=== PATIENT | female | born 1975 | race Native Hawaiian/Other Pacific Islander ===

== ENCOUNTER 2021-03-14 19:12 | Inpatient (IN) | payer MEDICARE ==
[2021-03-14] MEDS ORDERED: SODIUM CHLORIDE 0.9% 1000 ML 1,000 ML IV ONE (19:22)
[2021-03-14] MEDS ORDERED: levETIRAcetam 1000 MG/NS 0.75% 1,000 MG/100 ML BAG IV ONE (19:22)
[2021-03-14] MEDS ORDERED: LACOSAMIDE 100 MG in SODIUM CHLORIDE 0.9% 100 ML IV ONE (19:23)
--- NOTE | 2021-03-14 19:36 | Emergency Department Report ---
HPI - General Chief Complaint: Seizure Time Seen by Provider: 03/14/21 19:17 - HPI HPI: 45-year-old female presents to the emergency department via EMS from home after she has had multiple recurrent seizures over the past week. She last had a seizure this morning. She presents to the emergency department awake, alert, oriented, AAO x3. She complains of a headache, and some midsternal chest pain. Patient says the headache has been going on for the past 2 weeks since the patient had a fall and hit the back of her head. The patient does have a sei zure disorder for which she is on Keppra and Vimpat, but admits that she is not always compliant with her medication. She also has a history of neuropathy. Her primary care physician is Dr. Brendon Renner and her neurologist is Dr. May. She denies any vision change, slurred speech, numbness or paresthesias, focal or lateralizing weakness. She is a former smoker. She denies any illicit drug use or any alcohol use/dependence. ED Past Medical Hx - Past Medical History Hx Seizures: Yes Additional medical history: PNEUMONIA - Surgical History Past Surgical History?: Yes Additional Surgical History: TRACH ED Review of Systems ROS: Stated complaint: SEIZURE Other details as noted in HPI Comment: All other systems reviewed and negative Constitutional: denies: chills, fever Eyes: denies: eye pain, vision change ENT: denies: ear pain, throat pain Respiratory: denies: cough, shortness of breath Cardiovascular: chest pain. denies: palpitations Gastrointestinal: denies: abdominal pain, vomiting Genitourinary: denies: dysuria, discharge Musculoskeletal: denies: back pain, arthralgia Skin: denies: rash, lesions Neurological: headache, other (Seizures). denies: numbness, paresthesias Physical Exam - Physical Exam Vital Signs: Vital Signs 03/14/21 19:20 Blood Pressure 105/68 O2 Sat by Pulse 100 Oximetry Physical Exam: GENERAL: The patient is well-developed well-nourished. HENT: Normocephalic. Atraumatic. Patient has moist mucous membranes. EYES: Extraocular motions are intact. NECK: Supple. Trachea is midline. CHEST/LUNGS: Clear to auscultation. There is no respiratory distress noted. HEART/CARDIOVASCULAR: Regular. There is no tachycardia. There is no murmur. ABDOMEN: Abdomen is soft, nontender. Patient has normal bowel sounds. There is no abdominal distention. SKIN: Skin is warm and dry. NEURO: The patient is awake, alert, and cooperative. The patient has no focal neurologic deficits. Normal speech. Cranial nerves II through XII grossly intact. No facial asymmetry. MUSCULOSKELETAL: There is no tenderness or deformity. There is no limitation range of motion. ED Course Vital Signs 03/14/21 19:20 Blood Pressure 105/68 O2 Sat by Pulse 100 Oximetry ED Medical Decision Making - Lab Data Result diagrams: 03/14/21 19:27 03/14/21 19:27 Lab Results 03/14/21 03/14/21 03/14/21 Range/Units 19:27 19: 22:11 WBC 3.1 L (4.5-11.0) K/mm3 RBC 4.57 (3.65-5.03) M/mm3 Hgb 13.5 (10.1-14.3) gm/dl Hct 43.8 H (30.3-42.9) % MCV 96 (79-97) fl MCH 30 (28-32) pg MCHC 31 (30-34) % RDW 15.8 H (13.2-15.2) % Plt Count 249 (140-440) K/mm3 Lymph % (Auto) 38.6 H (13.4-35.0) % [place] % (Auto) 10.4 H (0.0-7.3) % Eos % (Auto) 4.0 (0.0-4.3) % Baso % (Auto) 0.4 (0.0-1.8) % Lymph # (Auto) 1.2 (1.2-5.4) K/mm3 [place] # (Auto) 0.3 (0.0-0.8) K/mm3 Eos # (Auto) 0.1 (0.0-0.4) K/mm3 Baso # (Auto) 0.0 (0.0-0.1) K/mm3 Seg Neutrophils % 46.6 (40.0-70.0) % Seg Neutrophils # 1.4 L (1.8-7.7) K/mm3 Sodium 139 (137-145) mmol/L Potassium 3.7 (3.6-5.0) mmol/L Chloride 109.5 H (98-107) mmol/L Carbon Dioxide 17 L (22-30) mmol/L Anion Gap 16 mmol/L BUN 35 H (7-17) mg/dL Creatinine 1.3 H (0.6-1.2) mg/dL Estimated GFR 44 ml/min BUN/Creatinine Ratio 27 % Glucose 52 L (65-100) mg/dL POC Glucose 113 H (70-105) mg/dL Calcium 9.0 (8.4-10.2) mg/dL Total Bilirubin 0.20 (0.1-1.2) mg/dL AST 12 (5-40) units/L ALT 8 (7-56) units/L Alkaline Phosphatase 97 (35-129) units/L Troponin T < 0.010 (0.00-0.029) ng/mL Total Protein 7.2 (6.3-8.2) g/dL Albumin 4.2 (3.9-5) g/dL Albumin/Globulin Ratio 1.4 % 11/16/ Range/Units 23:31 WBC (4.5-11.0) K/mm3 RBC (3.65-5.03) M/mm3 Hgb (10.1-14.3) gm/dl Hct (30.3-42.9) % MCV (79-97) fl MCH (28-32) pg MCHC (30-34) % RDW (13.2-15.2) % Plt Count (140-440) K/mm3 Lymph % (Auto) (13.4-35.0) % [place] % (Auto) (0.0-7.3) % Eos % (Auto) (0.0-4.3) % Baso % (Auto) (0.0-1.8) % Lymph # (Auto) (1.2-5.4) K/mm3 [place] # (Auto) (0.0-0.8) K/mm3 Eos # (Auto) (0.0-0.4) K/mm3 Baso # (Auto) (0.0-0.1) K/mm3 Seg Neutrophils % (40.0-70.0) % Seg Neutrophils # (1.8-7.7) K/mm3 Sodium (137-145) mmol/L Potassium (3.6-5.0) mmol/L Chloride (98-107) mmol/L Carbon Dioxide (22-30) mmol/L Anion Gap mmol/L BUN (7-17) mg/dL Creatinine (0.6-1.2) mg/dL Estimated GFR ml/min BUN/Creatinine Ratio % Glucose (65-100) mg/dL POC Glucose 83 (70-105) mg/dL Calcium (8.4-10.2) mg/dL Total Bilirubin (0.1-1.2) mg/dL AST (5-40) units/L ALT (7-56) units/L Alkaline Phosphatase (35-129) units/L Troponin T (0.00-0.029) ng/mL Total Protein (6.3-8.2) g/dL Albumin (3.9-5) g/dL Albumin/Globulin Ratio % - Radiology Data Radiology results: report reviewed CT head/brain wo con INDICATION / CLINICAL INFORMATION: 45 years Female; Recurrent seizures, recent head trauma, headache. TECHNIQUE: Routine CT head without contrast. All CT scans at this location are performed using CT dose reduction for ALARA by means of automated exposure control. COMPARISON: None. FINDINGS: BRAIN / INTRACRANIAL CONTENTS: No acute hemorrhage, mass effect, midline shift, hydrocephalus, or acute, large territorial infarct. Minimal, diffuse cerebral atrophy suggested. There are mild areas of decreased attenuation in the white matter of the cerebral hemispheres. These are nonspecific findings and may be related to microangiopathy (hypertension, diabetes, atherosclerosis), given the patient's age. CRANIOCERVICAL JUNCTION: No significant abnormality. ORBITS: No significant abnormality of visualized orbits. SINUSES / MASTOIDS: Visualized paranasal sinuses and mastoid air cells are essentially clear. ADDITIONAL FINDINGS: None. IMPRESSION: 1. No focal mass, hemorrhage, hydrocephalus, or acute, large territorial infarct. - Medical Decision Making This patient presents to the emergency department with complaint of multiple seizures over the past week, and then a seizure just prior to presentation. Patient also had some seizure-like activity while in the emergency department. She admits to some medication noncompliance with her antiepileptic medication. She was given a loading dose of Keppra and given a dose of Vimpat. CT of the head does not show any hemorrhage, large vessel occlusion, or any other acute process. Patient's labs are remarkable for some acute kidney injury with a GFR of about 45 and hyperglycemia with a blood sugar of about 50. Around the time of this laboratory result, the patient was seen slightly altered. When she was given an amp of D50 she immediately perked back up.. We continue to monitor her blood sugar. It went up to about 115 but then started decreasing into the low 80s. The patient's recurrent seizures may be secondary to a mixture of her medication noncompliance and issues with hypoglycemia that appeared to occur at night. Given the patient's multiple recent recurrent seizures, the HUMA, and the issues with a labile blood sugar, she will be admitted to the hospital for further evaluation and treatment was accepted for admission by the hospitalist, Dr. Gerardo. Critical Care Time: No Critical care attestation.: If time is entered above; I have spent that time in minutes in the direct care of this critically ill patient, excluding procedure time. ED Disposition Clinical Impression: Recurrent seizures, Hypoglycemia, HUMA (acute kidney injury) Disposition: ADMITTED INPATIENT Is pt being admited?: Yes Condition: Fair Referrals: BRENDON RENNER MD [Primary Care Provider] - 3-5 Days Time of Disposition: 00:07
[2021-03-14 19:44] LABS: Basophils % (Auto) 0.4 % (0.0-1.8); Eosinophils # (Auto) 0.1 K/mm3 (0.0-0.4); Lymphocytes # (Auto) 1.2 K/mm3 (1.2-5.4); Lymphocytes % (Auto) 38.6 % (13.4-35.0); Mean Corpuscular HGB Conc 31 % (30-34); Mean Corpuscular Volume 96 fl (79-97); Monocytes # (Auto) 0.3 K/mm3 (0.0-0.8); Monocytes % (Auto) 10.4 % (0.0-7.3); Platelet Count 249 K/mm3 (140-440); Red Blood Count 4.57 M/mm3 (3.65-5.03); Red Cell Distribution Width 15.8 % (13.2-15.2)
[2021-03-14 19:50] LABS: Hematocrit 43.8 % (30.3-42.9); Hemoglobin 13.5 gm/dl (10.1-14.3)
[2021-03-14 20:09] LABS: Alanine Aminotransferase 8 units/L (7-56); Albumin 4.2 g/dL (3.9-5); BUN/Creatinine Ratio 27; Blood Urea Nitrogen 35 mg/dL (7-17); Hemolysis Index 12
[2021-03-14] MEDS ORDERED: DEXTROSE 50% IN WATER (25GM) 50 ML SYRINGE IV ONE (20:11)
--- NOTE | 2021-03-14 20:30 | Cat Scan Report ---
CT head/brain wo con INDICATION / CLINICAL INFORMATION: 45 years Female; Recurrent seizures, recent head trauma, headache. TECHNIQUE: Routine CT head without contrast. All CT scans at this location are performed using CT dos e reduction for ALARA by means of automated exposure control. COMPARISON: None. FINDINGS: BRAIN / INTRACRANIAL CONTENTS: No acute hemorrhage, mass effect, midline shift, hydrocephalus, or acu te, large territorial infarct. Minimal, diffuse cerebral atrophy suggested. There are mild areas of decreased attenuation in the white matter of the cerebral hemispheres. These are nonspecific findings and may be related to microangiopathy (hypertension, diabetes, atheroscleros is), given the patient's age. CRANIOCERVICAL JUNCTION: No significant abnormality. ORBITS: No significant abnormality of visualized orbits. SINUSES / MASTOIDS: Visualized paranasal sinuses and mastoid air cells are essentially clear. ADDITIONAL FINDINGS: None. IMPRESSION: 1. No focal mass, hemorrhage, hydrocephalus, or acute, large territorial infarct. Signer Name: Neto Evans MD, III Signed: 03/14/2021 8:26 PM Workstation Name: [id number]
[2021-03-14] MEDS ORDERED: traMADol 50 MG TAB PO ONE (22:06)
[2021-03-15] MEDS ORDERED: ALBUTEROL 2.5 MG/3 ML NEBU IH PRN (00:47)
[2021-03-15] MEDS ORDERED: ONDANSETRON 4 MG/2 ML INJ IV PRN (00:47)
[2021-03-15] MEDS ORDERED: HYDROmorphone 1 MG/1 ML INJ IV PRN (00:47)
--- NOTE | 2021-03-15 00:55 | History and Physical Report ---
History of Present Illness Date of examination: 03/15/21 Date of admission: 03/15/21 Chief complaint: Seizure History of present illness: 45-year-old female with past medical history of seizure and neuropathy was brought to the emergency room because patient has had multiple recurrent seizures over the past week. She last had a seizure this morning. She presents to the emergency department awake, alert, oriented, AAO x3. She complains of a headache, and some midsternal chest pain. Patient says the headache has been going on for the past 2 weeks since the patient had a fall and hit the back of her head. The patient does have a seizure disorder for which she is on Keppra and Vimpat, but admits that she is not always compliant with her medication. Her primary care physician is Dr. Brendon Wolfe and her neurologist is Dr. May. She denies any vision change, slurred speech, numbness or paresthesias, focal or lateralizing weakness. She is a former smoker. She denies any illicit drug use or any alcohol use/dependence. In the emergency room initial CT scan of the head shows no acute intracranial abnormality. But patient blood glucose is 52 oh and BUN is 35 creatinine 1.3.'s were going to admit the patient will consult neurology for evaluation and we order EEG Med rec is not available Past History Past Medical History: seizures, other (Neuropath) Medications and Allergies Allergies Allergy/AdvReac Type Severity Reaction Status Date / Time No Known Allergies Allergy Unverified 03/14/21 20:07 Active Meds: Active Medications Acetaminophen (Acetaminophen 325 Mg Tab) 650 mg PO Q4H PRN PRN Reason: Pain MILD(1-3)/Fever >100.5/BROWN Albuterol (Albuterol 2.5 Mg/3 Ml Nebu) 2.5 mg IH Q4HRT PRN PRN Reason: Shortness Of Breath Albuterol/Ipratropium (Ipratropium/Albuterol Sulfate 3 Ml Ampul.Neb) 1 ampul IH Q6HRT JUAN Famotidine (Famotidine 20 Mg/2 Ml Inj) 20 mg IV BID JUAN Heparin Sodium (Porcine) (Heparin 5,000 Unit/1 Ml Vial) 5,000 unit SUB-Q Q12HR JUAN Hydromorphone HCl (Hydromorphone 1 Mg/1 Ml Inj) 0.5 mg IV Q3H PRN PRN Reason: Pain , Severe (7-10) Sodium Chloride (Nacl 0.9% 1000 Ml) 1,000 mls @ 125 mls/hr IV ONCE ONE Stop: 03/15/21 03:21 Last Admin: 03/14/21 21:01 Dose: 125 mls/hr Documented by: Dextrose/Sodium Chloride (D5/0.45ns) 1,000 mls @ 125 mls/hr IV DIRECT JUAN Levetiracetam 500 mg/ Dextrose 105 mls @ 400 mls/hr IV Q12HR JUAN Morphine Sulfate (Morphine 2 Mg/1 Ml Inj) 2 mg IV Q4H PRN PRN Reason: Pain, Moderate (4-6) Ondansetron HCl (Ondansetron 4 Mg/2 Ml Inj) 4 mg IV Q8H PRN PRN Reason: Nausea And Vomiting Sodium Chloride (Sodium Chloride 0.9% 10 Ml Flush Syringe) 10 ml IV BID JUAN Sodium Chloride (Sodium Chloride 0.9% 10 Ml Flush Syringe) 10 ml IV PRN PRN PRN Reason: LINE FLUSH Review of Systems All systems: negative Constitutional: other (Headache) Cardiovascular: chest pain Neurological: seizures Exam - Constitutional Vitals: Temp Pulse Resp BP Pulse Ox 73 13 130/80 98 03/14/21 23:01 03/14/21 23:01 03/14/21 23:01 03/14/21 23:01 General appearance: Present: no acute distress, well-nourished - EENT Eyes: Present: PERRL ENT: hearing intact, clear oral mucosa - Neck Neck: Present: supple, normal ROM - Respiratory Respiratory effort: normal Respiratory: bilateral: diminished - Cardiovascular Heart Sounds: Present: S1 & S2. Absent: rub, click - Extremities Extremities: pulses symmetrical, No edema Peripheral Pulses: within normal limits - Abdominal General gastrointestinal: Present: soft, non-tender, non-distended, normal bowel sounds Female genitourinary: Present: normal - Integumentary Integumentary: Present: clear, warm, dry - Musculoskeletal Musculoskeletal: gait normal, strength equal bilaterally - Psychiatric Psychiatric: appropriate mood/affect, intact judgment & insight - Neurologic Neurologic: CNII-XII intact, moves all extremities HEART Score - HEART Score Troponin: Troponin T < 0.010 ng/mL (0.00-0.029) 11/16/21 19: Results - Labs CBC & Chem 7: 03/14/21 19:27 03/14/21: Labs: Laboratory Last Values WBC 3.1 K/mm3 (4.5-11.0) L 03/14/21: RBC 4.57 M/mm3 (3.65-5.03) 03/14/21: Hgb 13.5 gm/dl (10.1-14.3) 03/14/21: Hct 43.8 % (30.3-42.9) H 03/14/21: MCV 96 fl (79-97) 03/14/21: MCH 30 pg (28-32) 03/14/21 MCHC 31 % (30-34) 03/14/21 RDW 15.8 % (13.2-15.2) H 03/14/21 Plt Count 249 K/mm3 (140-440) 03/14/21: Lymph % (Auto) 38.6 % (13.4-35.0) H 03/14/21: [place] % (Auto) 10.4 % (0.0-7.3) H 03/14/21: Eos % (Auto) 4.0 % (0.0-4.3) 03/14/21 Baso % (Auto) 0.4 % (0.0-1.8) 03/14/21 Lymph # (Auto) 1.2 K/mm3 (1.2-5.4) 03/14/21: [place] # (Auto) 0.3 K/mm3 (0.0-0.8) 03/14/21: Eos # (Auto) 0.1 K/mm3 (0.0-0.4) 03/14/21 Baso # (Auto) 0.0 K/mm3 (0.0-0.1) 03/14/21: Seg Neutrophils % 46.6 % (40.0-70.0) 03/14/21: Seg Neutrophils # 1.4 K/mm3 (1.8-7.7) L 11/16/21 19:27 Sodium 139 mmol/L (137-145) 03/14/21 19:27 Potassium 3.7 mmol/L (3.6-5.0) 03/14/21 19:27 Chloride 109.5 mmol/L (98-107) H 03/14/21 19:27 Carbon Dioxide 17 mmol/L (22-30) L 03/14/21 19:27 Anion Gap 16 mmol/L 03/14/21 19:27 BUN 35 mg/dL (7-17) H 03/14/21 19:27 Creatinine 1.3 mg/dL (0.6-1.2) H 03/14/21 19:27 Estimated GFR 44 ml/min 03/14/21 19:27 BUN/Creatinine Ratio 27 % 03/14/21 19:27 Glucose 52 mg/dL (65-100) L 03/14/21 19:27 POC Glucose 83 mg/dL (70-105) 03/14/21 23:31 Calcium 9.0 mg/dL (8.4-10.2) 03/14/21 19:27 Total Bilirubin 0.20 mg/dL (0.1-1.2) 03/14/21 19:27 AST 12 units/L (5-40) 03/14/21 19:27 ALT 8 units/L (7-56) 03/14/21 19:27 Alkaline Phosphatase 97 units/L (35-129) 03/14/21 19:27 Troponin T < 0.010 ng/mL (0.00-0.029) 03/14/21 19:27 Total Protein 7.2 g/dL (6.3-8.2) 03/14/21 19:27 Albumin 4.2 g/dL (3.9-5) 03/14/21 19:27 Albumin/Globulin Ratio 1.4 % 03/14/21 19:27 - Imaging and Cardiology CT Scan - head: report reviewed Assessment and Plan VTE prophylaxis?: Chemical Plan of care discussed with patient/family: Yes - Patient Problems (1) Recurrent seizures Current Visit: Yes Status: Acute Plan to address problem: Admit the patient to the MedSurg. Patient is on seizure precaution and. NPO. D5 half-normal saline at the rate of 100 cc/h. Keppra 500 mg IV daily. EEG. Will consult neurology for evaluation (2) HUMA (acute kidney injury) Current Visit: Yes Status: Acute Plan to address problem: NPO. D5 half-normal saline at the rate of 100 cc/h. Avoid nephrotoxic drug. Recheck BMP in the morning (3) Hypoglycemia Current Visit: Yes Status: Acute Plan to address problem: NPO. D5 half-normal saline at the rate of 100 cc/h. We'll monitor the glucose closely. Recheck BMP in the morning (4) Neuropathy Current Visit: Yes Status: Acute Plan to address problem: Stable. We'll continue the home medication. Neurology evaluation (5) DVT prophylaxis Current Visit: Yes Status: Acute Plan to address problem: Heparin 5000 units subcu every 12 hours for DVT prophylaxis. Pepcid 20 mg IV every 12 hours for GI prophylaxis. Patient is a full code
[2021-03-15] MEDS ORDERED: D5W/0.45% NACL 1,000 ML IV SCH (01:00)
[2021-03-15] MEDS: IPRATROPIUM/ALBUTEROL SULFATE 3 ML AMPUL.NEB IH SCH (03:30)
[2021-03-15] MEDS: MORPHINE 2 MG/1 ML INJ IV PRN ×2 (03:47→19:33)
[2021-03-15] MEDS ORDERED: SODIUM CHLORIDE 0.9% 500 ML 500 ML IV ONE (04:49)
[2021-03-15] MEDS ORDERED: SODIUM CHLORIDE 0.9% 1000 ML 1,000 ML IV ONE (05:33)
[2021-03-15] MEDS ORDERED: NALOXONE 0.4 MG/1 ML INJ IV ONE (05:50)
--- NOTE | 2021-03-15 08:26 | Consultation ---
History of Present Illness Consult date: 03/15/21 Reason for Consult: recurrent seizure and headache History of present illness: Seizure History of present illness: 45-year-old female with past medical history of seizure and neuropathy was brought to the emergency room because patient has had multiple recurrent seizures over the past week. She last had a seizure this morning. She presents to the emergency department awake, alert, oriented, AAO x3. She complains of a headache, and some midsternal chest pain. Patient says the headache has been going on for the past 2 weeks since the patient had a fall and hit the back of her head. The patient does have a s eizure disorder for which she is on Keppra and Vimpat, but admits that she is not always compliant with her medication. Her primary care physician is Dr. Brendon Wolfe and her neurologist is Dr. May. According to her she averaged in the last 2 weeks 5-7 seizures daily present with tonic clonic activity each last 2-3 minutes then she is sleepy she is on Keppra 750 mg bid and Vimpat just been added 2 weeks ago according to medication make his dizzy and sleepy She denies any vision change, slurred speech, numbness or paresthesias, focal or lateralizing weakness. She is a former smoker. She denies any illicit drug use or any alcohol use/dependence. In the emergency room initial CT scan of the head shows no acute intracranial abnormality. But patient blood glucose is 52 oh and BUN is 35 creatinine 1.3.'s were going to admit the patient will consult neurology for evaluation and we order EEG Med rec is not available Past History Past Medical History: seizures, other (Neuropath) Medications and Allergies Allergies Allergy/AdvReac Type Severity Reaction Status Date / Time No Known Allergies Allergy Unverified 03/14/21 20:07 Active Meds: Active Medications Acetaminophen (Acetaminophen 325 Mg Tab) 650 mg PO Q4H PRN PRN Reason: Pain MILD(1-3)/Fever >100.5/BROWN Albuterol (Albuterol 2.5 Mg/3 Ml Nebu) 2.5 mg IH Q4HRT PRN PRN Reason: Shortness Of Breath Albuterol/Ipratropium (Ipratropium/Albuterol Sulfate 3 Ml Ampul.Neb) 1 ampul IH Q6HRT JUAN Famotidine (Famotidine 20 Mg/2 Ml Inj) 20 mg IV BID JUAN Heparin Sodium (Porcine) (Heparin 5,000 Unit/1 Ml Vial) 5,000 unit SUB-Q Q12HR JUAN Hydromorphone HCl (Hydromorphone 1 Mg/1 Ml Inj) 0.5 mg IV Q3H PRN PRN Reason: Pain , Severe (7-10) Sodium Chloride (Nacl 0.9% 1000 Ml) 1,000 mls @ 125 mls/hr IV ONCE ONE Stop: 03/15/21 03:21 Last Admin: 03/14/21 21:01 Dose: 125 mls/hr Documented by: Dextrose/Sodium Chloride (D5/0.45ns) 1,000 mls @ 125 mls/hr IV DIRECT JUAN Levetiracetam 500 mg/ Dextrose 105 mls @ 400 mls/hr IV Q12HR JUAN Morphine Sulfate (Morphine 2 Mg/1 Ml Inj) 2 mg IV Q4H PRN PRN Reason: Pain, Moderate (4-6) Ondansetron HCl (Ondansetron 4 Mg/2 Ml Inj) 4 mg IV Q8H PRN PRN Reason: Nausea And Vomiting Sodium Chloride (Sodium Chloride 0.9% 10 Ml Flush Syringe) 10 ml IV BID JUAN Sodium Chloride (Sodium Chloride 0.9% 10 Ml Flush Syringe) 10 ml IV PRN PRN PRN Reason: LINE FLUSH Review of Systems All systems: negative Constitutional: other (Headache) Cardiovascular: chest pain Neurological: seizures Past History Past Medical History: seizures, other (Neuropath) Medications and Allergies Allergies Allergy/AdvReac Type Severity Reaction Status Date / Time No Known Allergies Allergy Unverified 03/14/21 20:07 Home Medications Medication Instructions Recorded Confirmed Last Taken Type Keppra 750 mg PO BID 03/15/21 03/15/21 Unknown History Lyrica 200 mg PO BID 03/15/21 03/15/21 Unknown History Midodrine 20 mg PO BID 03/15/21 03/15/21 Unknown History Oxybutynin 5 mg PO DAILY 03/15/21 03/15/21 Unknown History Temazepam 30 mg PO HS 03/15/21 03/15/21 Unknown History Vimpat 100 mg PO BID 03/15/21 03/15/21 Unknown History Active Meds: Active Medications Acetaminophen (Acetaminophen 325 Mg Tab) 650 mg PO Q4H PRN PRN Reason: Pain MILD(1-3)/Fever >100.5/BROWN Albuterol (Albuterol 2.5 Mg/3 Ml Nebu) 2.5 mg IH Q4HRT PRN PRN Reason: Shortness Of Breath Albuterol/Ipratropium (Ipratropium/Albuterol Sulfate 3 Ml Ampul.Neb) 1 ampul IH Q6HRT [facility] [place] Last Admin: 03/15/21 03:30 Dose: 1 ampul Documented by: Famotidine (Famotidine 20 Mg Tab) 20 mg PO BID [facility] [place] Heparin Sodium (Porcine) (Heparin 5,000 Unit/1 Ml Vial) 5,000 unit SUB-Q Q12HR JUAN Hydromorphone HCl (Hydromorphone 1 Mg/1 Ml Inj) 0.5 mg IV Q3H PRN PRN Reason: Pain , Severe (7-10) Dextrose/Sodium Chloride (D5/0.45ns) 1,000 mls @ 125 mls/hr IV DIRECT JUAN Levetiracetam 500 mg/ Dextrose 105 mls @ 400 mls/hr IV Q12HR JUAN Morphine Sulfate (Morphine 2 Mg/1 Ml Inj) 2 mg IV Q4H PRN PRN Reason: Pain, Moderate (4-6) Last Admin: 03/15/21 03:47 Dose: 2 mg Documented by: Ondansetron HCl (Ondansetron 4 Mg/2 Ml Inj) 4 mg IV Q8H PRN PRN Reason: Nausea And Vomiting Sodium Chloride (Sodium Chloride 0.9% 10 Ml Flush Syringe) 10 ml IV BID [facility] [place] Sodium Chloride (Sodium Chloride 0.9% 10 Ml Flush Syringe) 10 ml IV PRN PRN PRN Reason: LINE FLUSH Physical Examination - Vital Signs Vital Signs: Vital Signs BP Pulse Ox 105/68 100 03/14/21 19:20 03/14/21 19:20 - Constitutional General appearance: uncomfortable, other (slightly lathergic evaluated after MRI done and she got ativan) - EENT EENT: Present: PERRL, mucous membranes moist - Respiratory Respiratory: Present: chest non-tender, lungs clear, rhonchi - Cardiovascular Cardiovascular: Present: regular rate, normal S1, normal S2 Extremities: Present: no peripheral edema bilatateraly, no clubbing, cyanosis - Gastrointestinal Gastrointestinal: Present: normoactive bowel sounds - Integumentary Integumentary: Present: normal - Neurologic Cranial nerve examination: PERRL, EOMI, VFF, facial droop Speech examination: intact Sensorimotor examination: intact Detailed motor examination: grossly full strength in, other (diffuse tenderness related to fall , no focal exam , ) Results - Laboratory Findings CBC and BMP: 03/14/21 19:27 03/14/21 19:27 Abnormal Lab Findings: Abnormal Labs 03/14/21 03/14/21 03/14/21 19:27 19:27 22:11 WBC 3.1 L Hct 43.8 H RDW 15.8 H Lymph % (Auto) 38.6 H [place] % (Auto) 10.4 H Seg Neutrophils # 1.4 L Chloride 109.5 H Carbon Dioxide 17 L BUN 35 H Creatinine 1.3 H Glucose 52 L POC Glucose 113 H Assessment and Plan Assessment and Plan 45-year-old female with past medical history of seizure and neuropathy was brought to the emergency room because patient has had multiple recurrent seizures over the past week. # Recurrent seizures few a day with long standing hx of seizure -compling with her medication at time but had side effect of getting dizzy and sleepy from medication specially Vimpay {was added 2 weeks ago} -change Keppra to 1500 mg mg bid IV -Vimpat 50 mg bid IV -Seizure precaution -MRI with Gd to review -EEG -ativan 2 mg Prn for seizure -Thiamin 200 mg IV daily for 3 days # HUMA (acute kidney injury) - D5 half-normal saline at the rate of 100 cc/h. - Avoid nephrotoxic drug. Recheck BMP in the morning #Hypoglycemia - D5 half-normal saline at the rate of 100 cc/h. We'll monitor the glucose closely. Recheck BMP in the morning # Neuropathy - check A1C,TSH,B12 - We'll continue the home medication. # DVT prophylaxis -Heparin 5000 units subcu every 12 hours for DVT prophylaxis. - Pepcid 20 mg IV every 12 hours for GI prophylaxis. - Patient is a full code
[2021-03-15] MEDS ORDERED: MIDODRINE 5 MG TAB PO ONE (09:45)
[2021-03-15] MEDS ORDERED: levETIRAcetam 500 MG in DEXTROSE 5% IN WATER 100 ML IV SCH (10:00)
[2021-03-15] MEDS ORDERED: FAMOTIDINE 20 MG/2 ML INJ IV SCH (10:00)
[2021-03-15] MEDS: FAMOTIDINE 20 MG TAB PO SCH ×2 (11:07→21:24)
[2021-03-15] MEDS: ACETAMINOPHEN 325 MG TAB PO PRN (11:47)
[2021-03-15] MEDS ORDERED: LORazepam 2 MG/ML VIAL IV PRN (11:49)
--- NOTE | 2021-03-15 11:53 | Magnetic Resonance Report ---
MR brain wo/w con INDICATION / CLINICAL INFORMATION: 45 years Female; Seizure disorder. TECHNIQUE: Multiplanar, multisequence MR images of the brain were obtained. COMPARISON: None available. FINDINGS: BRAIN / INTRACRANIAL CONTENTS: The motion degrades image quality. However, there is mild periventricu lar white matter disease which is nonspecific though may reflect microvascular angiopathy. However, t here is also linear increased FLAIR signal along the insular cortex bilaterally and a symmetric fashi on and correlation would be needed regarding insular epilepsy in this patient with history of "seizur e disorder". There also appear to be relative atrophy for age including the temporal lobes and hippoc ampi. Furthermore, there appears be subtle increased FLAIR signal within the hippocampi, slightly gre ater on the left which may be seen with mesial temporal sclerosis. However, the constellation of the insular cortical and hippocampal findings may be seen with limbic encephalitis and correlation would again be needed. The motion particularly degrades the postcontrast sequences. However, there appears to be subtle irregular enhancement along the posterior left temporal subcortical region measuring dave roximately 1.5 cm in greatest AP dimension. The diffusion imaging reveals no evidence of acute infarction. The ventricular system is correspondin gly appropriate in size and configuration. No extra-axial fluid collections or significant mass effec t is identified. , CRANIOCERVICAL JUNCTION: No significant abnormality. VASCULAR FLOW-VOIDS: No significant abnormality. ORBITS: No significant abnormality of visualized orbits. SINUSES / MASTOIDS: No significant abnormality in the visualized paranasal sinuses or mastoid air az ls. ADDITIONAL FINDINGS: None. IMPRESSION: There is increased FLAIR signal involving the insular cortex bilaterally with focus of subtle enhance ment within the adjacent posterior left temporal lobe as detailed above. 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 Signer Name: Car Quintana MD Signed: 03/15/2021 11:49 AM Workstation Name: [id number]
[2021-03-15] MEDS: THIAMINE 200 MG in SODIUM CHLORIDE 0.9% 50 ML IV SCH (13:19)
[2021-03-15] MEDS: MIDODRINE 2.5 MG TAB PO SCH ×2 (13:20→17:23)
[2021-03-15] MEDS: LACOSAMIDE 50 MG in SODIUM CHLORIDE 0.9% 100 ML IV SCH (13:28)
[2021-03-15] MEDS: HEPARIN 5,000 UNIT/1 ML VIAL SUB-Q SCH ×2 (13:28→21:24)
--- NOTE | 2021-03-15 14:59 | Event Note ---
Date: 03/15/21 Patient seen and examined clinically stable, neurology input noted. Luiza ayoub. Will follow a.m. labs. Patient also has acute kidney injury secondary to vasomotor nephropathy and metabolic acidosis also noted. Patient is chronically hypotensive and is on midodrine outpatient. She is still a bit drowsy but will monitor for full improvement prior to discharge.
[2021-03-15 18:49] LABS: Amphetamine Screen,Urine Negative; Cannabinoid Screen,Urine Negative; Cocaine Screen,Urine Negative; Methadone Screen,Urine Negative; Opiate Screen,Urine Negative
[2021-03-15 18:53] LABS: HCG Qualitative,Urine Negative (Negative)
[2021-03-15 21:04] LABS: Benzodiazepines Screen,Urine Positive
[2021-03-15] MEDS: levETIRAcetam 1,500 MG in DEXTROSE 5% IN WATER 100 ML IV SCH (21:24)
[2021-03-16] MEDS: LACOSAMIDE 50 MG in SODIUM CHLORIDE 0.9% 100 ML IV SCH (00:55)
[2021-03-16] MEDS ORDERED: SODIUM CHLORIDE 0.9% 1000 ML 500 ML IV ONE (05:20)
[2021-03-16] MEDS: ACETAMINOPHEN 325 MG TAB PO PRN (05:45)
[2021-03-16 05:52] LABS: Hematocrit 33.3 % (30.3-42.9); Hemoglobin 10.7 gm/dl (10.1-14.3); Mean Corpuscular HGB Conc 32 % (30-34); Mean Corpuscular Volume 94 fl (79-97); Platelet Count 179 K/mm3 (140-440); Red Blood Count 3.56 M/mm3 (3.65-5.03)
[2021-03-16 06:06] LABS: BUN/Creatinine Ratio 28; Blood Urea Nitrogen 22 mg/dL (7-17); Calcium 8.2 mg/dL (8.4-10.2); Hemolysis Index 11
[2021-03-16 06:35] VITALS: BP 101/69
[2021-03-16] MEDS: IPRATROPIUM/ALBUTEROL SULFATE 3 ML AMPUL.NEB IH SCH ×4 (08:39→13:11)
[2021-03-16 08:41] LABS: Total Cells Counted 100
[2021-03-16 08:42] LABS: Ovalocytes 1+; Platelet Estimate Consistent w Auto
[2021-03-16] MEDS ORDERED: MIDODRINE 5 MG TAB PO SCH (09:00)
--- NOTE | 2021-03-16 09:19 | Discharge Summary ---
Providers - Providers Date of Admission: 03/15/21 09:58 Attending physician: NICOLAS VIVAR MD 03/15/21 00:47 Consult to Physician [CONS] Routine Comment: Consulting Provider: RITU ROBLES Physician Instructions: Reason For Exam: Seizure 03/15/21 19:38 Physical Therapy Evaluation and Treat [CONS] Routine Comment: Reason For Exam: Eval for treat 03/15/21 19:39 Occupational Therapy Evaluate and Treat [CONS] Routine Comment: Reason For Exam: Eval and treat Primary care physician: BRENDON RENNER Hospitalization Reason for admission: Altered mental status possible seizure Condition: Stable Hospital course: 45-year-old female with past medical history of seizure and neuropathy was brought to the emergency room because patient has had multiple recurrent seizures over the past week. She last had a seizure this morning. She presents to the emergency department awake, alert, oriented, AAO x3. She complains of a headache, and some midsternal chest pain. Patient says the headache has been going on for the past 2 weeks since the patient had a fall and hit the back of her head. The patient does have a seizure disorder for which she is on Keppra and Vimpat, but admits that she is not always compliant with her medication. Her primary care physician is Dr. Brendon Renner and her neurologist is Dr. May. She denies any vision change, slurred speech, numbness or paresthesias, focal or lateralizing weakness. She is a former smoker. She denies any illicit drug use or any alcohol use/dependence. In the emergency room initial CT scan of the head shows no acute intracranial abnormality. But patient blood glucose is 52 oh and BUN is 35 creatinine 1.3.'s were going to admit the patient will consult neurology for evaluation and we order EEG 03/16: Patient was seen and treated as clearly documented. Her imaging studies were not consistent with any further strokelike conditions. Discussed with neurologist, recommmend patient follows with her own neurologist. Also on further discussion with the patient, she said ran out of Temazepam and Alprazolam. I am not clearly sure why she is on all these benzos and have discussed risk factors associated with this. (1) Recurrent seizures (2) HUMA (acute kidney injury) with vasomotor nephrology (3) Hypoglycemia (4) Neuropathy (5) Acute metabolic encephalopathy Chronic hypotension on midodrine Metabolic acidosis Leukopenia Disposition: HOME / SELF CARE / HOMELESS Final Discharge Diagnosis (Prints w/discharge instructions): Recurrent seizures Time spent for discharge: 35 mins Core Measure Documentation - Palliative Care Palliative Care/ Comfort Measures: Not Applicable - Core Measures Any of the following diagnoses?: none Exam - Physical Exam Narrative exam: General appearance: Present: no acute distress, well-nourished - EENT Eyes: Present: PERRL ENT: hearing intact, clear oral mucosa - Neck Neck: Present: supple, normal ROM - Respiratory Respiratory effort: normal Respiratory: bilateral: diminished - Cardiovascular Heart Sounds: Present: S1 & S2. Absent: rub, click - Extremities Extremities: pulses symmetrical, No edema Peripheral Pulses: within normal limits - Abdominal General gastrointestinal: Present: soft, non-tender, non-distended, normal bowel sounds Female genitourinary: Present: normal - Integumentary Integumentary: Present: clear, warm, dry - Musculoskeletal Musculoskeletal: gait normal, strength equal bilaterally - Psychiatric Psychiatric: appropriate mood/affect, intact judgment & insight - Neurologic Neurologic: CNII-XII intact, moves all extremities - Constitutional Vitals: Temp Pulse Resp BP Pulse Ox 97.9 F 51 L 20 101/69 98 03/16/21 05:11 03/16/21 08:40 03/16/21 08:40 03/16/21 06:34 03/16/21 08:40 Plan Activity: advance as tolerated, fall precautions Diet: low fat Special Instructions: record daily weights, record daily BP diary Care Plan Goals: please follow with your primary Neurologist in 3-5 days Follow up with: BRENDON RNENER MD [Primary Care Provider] - 3-5 Days Prescriptions: Temazepam 30 mg PO HS #30 tab Thiamine HCl [Vitamin B-1] 100 mg PO DAILY #30 tablet ALPRAZolam [Xanax TAB] 1 mg PO Q8HR #30 tab
[2021-03-16] MEDS ORDERED: MIDODRINE PO SCH (10:00)
--- NOTE | 2021-03-16 10:39 | Electrocardiograph Report ---
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
[2021-03-16] MEDS: HEPARIN 5,000 UNIT/1 ML VIAL SUB-Q SCH (11:19)
[2021-03-16] MEDS: FAMOTIDINE 20 MG TAB PO SCH (11:24)
--- NOTE | 2021-03-16 11:35 | Progress Note ---
Assessment and Plan Assessment and Plan 45-year-old female with past medical history of seizure and neuropathy was brought to the emergency room because patient has had multiple recurrent seizures over the past week. # Recurrent seizures few a day with long standing hx of seizure -compling with her medication at time but had side effect of getting dizzy and sleepy from medication specially Vimpat according to is niot taking medication on daily basis -change Keppra to 1500 mg mg bid IV -Vimpat 50 mg bid IV -Seizure precaution -MRI with Gd is noted -EEG is unremarkable -ativan 2 mg Prn for seizure -Thiamin 200 mg IV daily for 3 days -Need follow up with her neurologist to adjust medication as needed - seizure precaution -not to be left home alone d/w # HUMA (acute kidney injury) - D5 half-normal saline at the rate of 100 cc/h. - Avoid nephrotoxic drug. Recheck BMP in the morning #Hypoglycemia - D5 half-normal saline at the rate of 100 cc/h. We'll monitor the glucose closely. Recheck BMP in the morning # Neuropathy - check A1C,TSH,B12 - We'll continue the home medication. # DVT prophylaxis -Heparin 5000 units subcu every 12 hours for DVT prophylaxis. - Pepcid 20 mg IV every 12 hours for GI prophylaxis. 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 of hippocampal atrophy Objective - Vital Sign Vital Signs - 12hr 03/16/21 03/16/21 03/16/21 02:33 05:11 06:29 Temperature 97.9 F Pulse Rate 39 L 43 L Pulse Rate [ Anterior Bilateral Throughout] Respiratory 18 Rate Respiratory Rate [Anterior Bilateral Throughout] Blood Pressure 82/49 Blood Pressure [Right] O2 Sat by Pulse 96 98 99 Oximetry 03/16/21 03/16/21 06:34 08:40 Temperature Pulse Rate Pulse Rate [ 51 L Anterior Bilateral Throughout] Respiratory Rate Respiratory 20 Rate [Anterior Bilateral Throughout] Blood Pressure Blood Pressure 101/69 [Right] O2 Sat by Pulse 98 Oximetry - General Apperance Constitutional: comfortable - EENT EENT: PERRL, mucous membranes moist - Respiratory Respiratory: chest non-tender, lungs clear, rhonchi - Cardiovascular Cardiovascular: regular rate, normal S1, normal S2 Extremities: no peripheral edema bilat, no clubbing, cyanosis - Gastrointestinal Gastrointestinal: normoactive bowel sounds - Integumentary Integumentary: normal - Neurologic Cranial nerve examination: PERRL, intact Speech examination: intact Detailed motor examination: grossly full strength in - Laboratory Findings CBC and BMP: 03/16/21 05:15 03/16/21 05:15 Abnormal Lab Findings: Abnormal Labs 03/14/21 03/14/21 03/14/21 19:27 19:27 22:11 WBC 3.1 L RBC Hct 43.8 H RDW 15.8 H Lymph % (Auto) 38.6 H [place] % (Auto) 10.4 H Lymphocytes % (Manual) Monocytes % (Manual) Seg Neutrophils # 1.4 L Seg Neutrophils # Man Lymphocytes # (Manual) Chloride 109.5 H Carbon Dioxide 17 L BUN 35 H Creatinine 1.3 H Glucose 52 L POC Glucose 113 H Calcium 03/15/21 03/16/21 03/16/21 21:13 05:15 05:15 WBC 2.3 L RBC 3.56 L Hct RDW Lymph % (Auto) [place] % (Auto) Lymphocytes % (Manual) 44.0 H Monocytes % (Manual) 9.0 H Seg Neutrophils # Seg Neutrophils # Man 1.0 L Lymphocytes # (Manual) 1.0 L Chloride 112.3 H Carbon Dioxide 17 L BUN 22 H Creatinine Glucose 113 H POC Glucose 109 H Calcium 8.2 L
[2021-03-16] MEDS: levETIRAcetam 1,500 MG in DEXTROSE 5% IN WATER 100 ML IV SCH (11:57)
[2021-03-16] MEDS: THIAMINE 200 MG in SODIUM CHLORIDE 0.9% 50 ML IV SCH (11:57)
== END 2021-03-16 14:00 | disposition left against medical advice (07) | DRG 100 ==
LOC: ED 19:12 → 3A 03-15 00:07 → OBSVTOIN 03-15 09:58
PROVIDERS: ADMIT Hospitalist; ATTEND Internal Medicine
DX: G40.909 Epilepsy, unspecified, not intractable, without status epilepticus (principal); N17.0 Acute kidney failure with tubular necrosis; G93.41 Metabolic encephalopathy; E87.2 Acidosis; E16.2 Hypoglycemia, unspecified; G62.9 Polyneuropathy, unspecified; I95.89 Other hypotension; Z20.822 Contact with and (suspected) exposure to COVID-19
CPT/HCPCS: 36415; 70450; 70553; 80048; 80053; 80307; 81025; 82962; 84484; 85007; 85025; 93005; 94640; 95819; G0378; J3490; J7060; J7070; Q0162; A9575; C9254; J1644; J1953; J2270; J2310; J3411; J7030; J7040

== ENCOUNTER 2021-12-10 21:41 | Emergency (ER) | payer MEDICARE ==
[2021-12-10] MEDS ORDERED: SODIUM CHLORIDE 0.9% 1000 ML 1,000 ML IV ONE (22:41)
[2021-12-10] MEDS ORDERED: levETIRAcetam 1000 MG/NS 0.75% 1,000 MG/100 ML BAG IV ONE (22:41)
--- NOTE | 2021-12-10 22:49 | Emergency Department Report ---
ED Seizure HPI - General Chief Complaint: Seizure Stated Complaint: SEIZURE Time Seen by Provider: 12/10/21 22:29 Source: patient, EMS, old records reviewed Mode of arrival: Stretcher Limitations: No Limitations - History of Present Illness Initial Comments: This is a 46-year-old female with a history of seizure disorder, thyroid disease, who was brought into the emergency department by EMS after witnessed seizure at home. Patient was given 2 mg of Ativan by EMS prior to arrival, and no seizure activity has been noted since then. Unknown how many seizures patient had. Patient is sedate, but does respond, and appears oriented by 2. Patient denies any complaints, but does report feeling tired from the ativan. Patient states that she has been non compliant with her seizure medications, because she ran out. Otherwise no known aggravating factors. - Related Data Home Medications Medication Instructions Recorded Confirmed Last Taken Ibuprofen [Motrin 800 MG tab] 800 mg PO Q6HR 03/15/21 03/15/21 Unknown Keppra 750 mg PO BID 03/15/21 03/15/21 Unknown Lyrica 200 mg PO BID 03/15/21 03/15/21 Unknown Midodrine 20 mg PO BID 03/15/21 03/15/21 Unknown Oxybutynin 5 mg PO DAILY 03/15/21 03/15/21 Unknown PARoxetine HCL [PARoxetine] 40 mg PO QDAY 03/15/21 03/15/21 Unknown Vimpat 100 mg PO BID 03/15/21 03/15/21 Unknown traMADoL [Ultram 50 MG tab] 50 mg PO Q6HR 03/15/21 03/15/21 Unknown Previous Rx's Medication Instructions Recorded Last Taken Type ALPRAZolam [Xanax TAB] 1 mg PO TID PRN #14 tab 03/16/21 Unknown Rx Temazepam 30 mg PO QHS #30 capsule 03/16/21 Unknown Rx Thiamine HCl [Vitamin B-1] 100 mg PO DAILY #30 tablet 03/16/21 Unknown Rx Allergies Allergy/AdvReac Type Severity Reaction Status Date / Time No Known Allergies Allergy Unverified 03/14/21 20:07 ED Review of Systems ROS: Stated complaint: SEIZURE Other details as noted in HPI Comment: All other systems reviewed and negative Constitutional: weakness. 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 denies: headache, weakness, paresthesias Psychiatric: denies: anxiety, depression Hematological/Lymphatic: denies: easy bleeding, easy bruising ED Past Medical Hx - Past Medical History Previous Medical History?: Yes Hx Seizures: Yes Additional medical history: PNEUMONIA. Thyroid disease - Surgical History Past Surgical History?: Yes Additional Surgical History: TRACH - Social History Smoking Status: Never Smoker Substance Use Type: None - Medications Home Medications: Home Medications Medication Instructions Recorded Confirmed Last Taken Type Ibuprofen [Motrin 800 MG tab] 800 mg PO Q6HR 03/15/21 03/15/21 Unknown History Keppra 750 mg PO BID 03/15/21 03/15/21 Unknown History Lyrica 200 mg PO BID 03/15/21 03/15/21 Unknown History Midodrine 20 mg PO BID 03/15/21 03/15/21 Unknown History Oxybutynin 5 mg PO DAILY 03/15/21 03/15/21 Unknown History PARoxetine HCL [PARoxetine] 40 mg PO QDAY 03/15/21 03/15/21 Unknown History Vimpat 100 mg PO BID 03/15/21 03/15/21 Unknown History traMADoL [Ultram 50 MG tab] 50 mg PO Q6HR 03/15/21 03/15/21 Unknown History ALPRAZolam [Xanax TAB] 1 mg PO TID PRN #14 tab 03/16/21 Unknown Rx Temazepam 30 mg PO QHS #30 capsule 03/16/21 Unknown Rx Thiamine HCl [Vitamin B-1] 100 mg PO DAILY #30 tablet 03/16/21 Unknown Rx ED Physical Exam - General Limitations: No Limitations, Physical Limitation (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 Absent: respiratory distress - Cardiovascular Cardiovascular Exam: Present: regular rate, normal rhythm. Absent: systolic murmur, diastolic murmur, rubs, gallop - GI/Abdominal GI/Abdominal exam: Present: soft, normal bowel sounds - Extremities Exam Extremities exam: Present: normal inspection - Back Exam Back exam: Present: normal inspection - Neurological Exam Neurological exam: Present: alert, oriented X3, CN II-XII intact, other (gait exam deffered secondary to sedation) - Psychiatric Psychiatric exam: Present: normal affect, normal mood - Skin Skin exam: Present: warm, dry, intact, normal color. Absent: rash ED Course Vital Signs 12/10/21 12/10/21 12/10/21 21:42 22:30 22:45 Temperature 98.3 F Pulse Rate 72 63 Respiratory 18 11 L 20 Rate Blood Pressure 106/67 99/63 O2 Sat by Pulse 98 100 Oximetry 12/10/21 12/10/21 12/10/21 23:00 23:16 23:22 Temperature Pulse Rate 63 66 69 Respiratory 20 11 L 11 L Rate Blood Pressure 133/84 105/69 99/63 O2 Sat by Pulse 97 64 L Oximetry 12/10/21 12/10/21 12/11/21 23:30 23:45 00:00 Temperature Pulse Rate 72 77 73 Respiratory 11 L 13 15 Rate Blood Pressure 99/63 135/85 O2 Sat by Pulse 92 100 89 Oximetry 12/11/21 12/11/21 12/11/21 00:16 00:30 00:46 Temperature Pulse Rate 87 80 72 Respiratory 14 13 14 Rate Blood Pressure 105/69 105/69 O2 Sat by Pulse 98 Oximetry 12/11/21 12/11/21 12/11/21 01:00 01:16 01:30 Temperature Pulse Rate 72 77 Respiratory 27 H 25 H 25 H Rate Blood Pressure 105/69 105/69 105/69 O2 Sat by Pulse 100 84 97 Oximetry 12/11/21 12/11/21 12/11/21 01:46 02:00 02:16 Temperature Pulse Rate 78 79 91 H Respiratory 15 21 16 Rate Blood Pressure 105/69 105/69 105/69 O2 Sat by Pulse 96 99 97 Oximetry 12/11/21 12/11/21 12/11/21 02:30 02:46 03:00 Temperature Pulse Rate 91 H 85 90 Respiratory 25 H 19 24 Rate Blood Pressure 105/69 105/69 105/69 O2 Sat by Pulse 95 96 97 Oximetry 12/11/21 12/11/21 12/11/21 03:16 03:30 03:46 Temperature Pulse Rate 85 80 81 Respiratory 16 22 21 Rate Blood Pressure 105/69 105/69 105/69 O2 Sat by Pulse 98 95 100 Oximetry 12/11/21 12/11/21 12/11/21 04:00 04:16 04:30 Temperature Pulse Rate 85 79 79 Respiratory 17 24 18 Rate Blood Pressure 105/69 105/69 105/69 O2 Sat by Pulse 97 95 100 Oximetry 12/11/21 12/11/21 12/11/21 04:46 05:00 05:16 Temperature Pulse Rate 89 81 77 Respiratory 19 22 20 Rate Blood Pressure 105/69 105/69 105/69 O2 Sat by Pulse 97 95 98 Oximetry 12/11/21 12/11/21 12/11/21 05:30 05:46 06:00 Temperature Pulse Rate 77 91 H 75 Respiratory 26 H 21 19 Rate Blood Pressure 105/69 105/69 105/69 O2 Sat by Pulse 99 95 98 Oximetry - Reevaluation(s) Reevaluation #1: 12/10/21 23:41 Patient has refused any lab work as she does not want to delay being discharged. Patient does agree to having the CT scan of her head done and denies being . Patient is currently receiving her Keppra IV, and will be discharged home if she does not have seizures and is able to ambulate in 2 hours. Reevaluation #2: 12/11/21 06:29 Patient is fully awake and oriented, and is now sure that she does not need a prescription for Keppra. Patient has not had another seizure while she been in the emergency department, and will be discharged home. ED Medical Decision Making - Radiology Data Radiology results: report reviewed Critical care attestation.: If time is entered above; I have spent that time in minutes in the direct care of this critically ill patient, excluding procedure time. ED Disposition Clinical Impression: Recurrent seizures Disposition: 01 HOME / SELF CARE / HOMELESS Is pt being admited?: No Condition: Stable Instructions: Epilepsy, Seizure, Adult Referrals: FAY RENNER MD [Primary Care Provider] - 3-5 Days Time of Disposition: 06:28
--- NOTE | 2021-12-11 00:02 | Cat Scan Report ---
. CT HEAD WITHOUT CONTRAST INDICATION / CLINICAL INFORMATION: Seizure. TECHNIQUE: All CT scans at this location are performed using CT dose reduction for ALARA by means of automated e xposure control. COMPARISON: 03/14/2021 FINDINGS: No acute intracranial hemorrhage. Mild motion artifact slightly limits examination. No midline shift or mass effect. There is low-attenuation in the white matter suggesting nonspecific white matter tubbs ge, similar to prior exam. ADDITIONAL FINDINGS: None. IMPRESSION: 1. No acute intracranial abnormality. No significant interval change. Signer Name: Gigi Zimmer MD Signed: 12/10/2021 11:57 PM Workstation Name: [id number]
[2021-12-11 08:45] LABS: Hematocrit 41.2 % (30.3-42.9); Hemoglobin 12.9 gm/dl (10.1-14.3); Mean Corpuscular HGB Conc 31 % (30-34); Mean Corpuscular Volume 98 fl (79-97); Platelet Count 237 K/mm3 (140-440); Red Blood Count 4.23 M/mm3 (3.65-5.03); Red Cell Distribution Width 14.7 % (13.2-15.2)
[2021-12-11 09:05] LABS: Albumin 3.5 g/dL (3.9-5); Calcium 8.8 mg/dL (8.4-10.2)
[2021-12-11 10:03] LABS: Basophils % (Manual) 0 % (0.0-1.8); Total Cells Counted 100
[2021-12-11 10:04] LABS: Platelet Estimate Consistent w Auto
[2021-12-11 11:01] LABS: Mucus,Urine FEW /HPF
[2021-12-11 11:04] LABS: Bilirubin,Urine Negative (Negative); Blood,Urine Moderate (Negative); Color,Urine Straw (Yellow); Urobilinogen,Urine < 2.0 mg/dL (<2.0)
[2021-12-11 11:12] LABS: ABG Base Excess -14.9 mmol/L (-2.0-3.0); ABG HCO3 11.2 mmol/L (20.0-26.0); ABG Methemoglobin 0.7 % (0.0-1.5); ABG Oxygen Saturation 96.3 % (95.0-99.0); ABG PCO2 27.1 mm Hg; ABG PH 7.232 pH Units (7.350-7.450); ABG PO2 95.9 mm Hg (80.0-90.0)
[2021-12-11] MEDS ORDERED: cefTRIAXone/NS 1 GM/50 ML 1 GM/50 ML BAG IV ONE (11:18)
[2021-12-11] MEDS ORDERED: SODIUM CHLORIDE 0.9% 1000 ML 1,000 ML ONE (11:20)
[2021-12-11] MEDS ORDERED: SODIUM CHLORIDE 0.9% 1000 ML 1,000 ML IV ONE (11:25)
[2021-12-11 11:34] LABS: Amphetamine Screen,Urine PRESUMPTIVE NEGATIVE; Benzodiazepines Screen,Urine PRESUMPTIVE NEGATIVE; Cannabinoid Screen,Urine PRESUMPTIVE NEGATIVE; Cocaine Screen,Urine PRESUMPTIVE NEGATIVE; Methadone Screen,Urine PRESUMPTIVE NEGATIVE; Opiate Screen,Urine PRESUMPTIVE NEGATIVE
[2021-12-11 12:53] VITALS: BP 137/79
== END 2021-12-11 14:21 | disposition home or self-care (01) ==
LOC: ED 21:41
DX: G40.909 Epilepsy, unspecified, not intractable, without status epilepticus (principal)
CPT/HCPCS: 36415; 70450; 80053; 80307; 81001; 82140; 82803; 85007; 85025; 86140; 87086; 96365; 96366; 96367; 99284; J0696; J1953; J7030